=== PATIENT | female | born 1970 | race Caucasian/White ===

== ENCOUNTER 2019-05-15 08:15 | Day surgery (SDC) | payer OTHER ==
[~2019-05-15 08:15] MED LIST: FENTANYL CITR 100 MCG/2 ML ONE; LIDOCAINE 2% MPF 5 ML VIAL ONE; MIDAZOLAM HCL 2 MG/2 ML INJ ONE; MORPHINE 10 MG/ML VIAL ONE; NS 0.9% VIAL 30 ML ONE; Phenylephrine HCl 10 MG/ML 1 ML VIAL ONE; ROCURONIUM 50 MG/5 ML VIAL IV ONE; propofoL 200 MG/20 ML VIAL IV ONE
[2019-05-15 08:31] LABS: Basophils % 0.9 % (0-1.3); Hematocrit 43.3 % (36.0-45.0); Lymphocytes % 13.2 % (15.3-44.8); MPV 8.5 fL (7.6-11.3); RBC Red Blood Cell Count 4.25 M/uL (3.86-4.86)
[2019-05-15] MEDS ORDERED: SCOPOLAMINE HYDROBROMIDE PATCH TD ONE (08:38)
[2019-05-15] MEDS ORDERED: Ringers Lactate 1,000 ML IV ONE ×4 (08:39→14:00)
[2019-05-15] MEDS ORDERED: CEFAZOLIN/SWI 1gm 1 GM/10 ML SYR ONE (08:39)
[2019-05-15] MEDS ORDERED: NS 0.9% VIAL 40 ML ONE (08:42)
--- NOTE | 2019-05-15 08:42 | RAD REPORT ---
EXAM DESCRIPTION: RAD - Chest Pa And Lat (2 Views) - 05/15/2019 8:14 am CLINICAL HISTORY: preop, patient pending breast surgery COMPARISON: No comparisons TECHNIQUE: Frontal and lateral views of the chest were obtained. FINDINGS: The lungs are clear. Heart size is normal and central vasculature is within normal limit s. No pleural effusion or pneumothorax seen. No acute bony finding noted. No aortic abnormality. IMPRESSION: No acute cardiopulmonary process.
[2019-05-15] MEDS ORDERED: CEFAZOLIN SODIUM 1 GM/VIAL ONE ×2 (08:43→10:37)
[2019-05-15] MEDS ORDERED: LIDOCAINE 1% 20 ML MDV ONE (08:43)
[2019-05-15] MEDS ORDERED: Mastisol Adhesive Liq ONE (08:43)
[2019-05-15] MEDS ORDERED: BACITRACIN 50000 UNIT VIAL ONE (08:43)
[2019-05-15] MEDS ORDERED: GENTAMICIN SULF 80 MG/2ML INJ ONE (08:43)
[2019-05-15 09:25] LABS: Specific Gravity 1.025 (1.005-1.030); Urine Appearance CLOUDY; Urine Blood NEGATIVE (NEG); Urine Color YELLOW; Urine Glucose NEGATIVE (NEG); Urine Protein NEGATIVE (NEG); Urine Specific Gravity 1.025 (1.005-1.030); Urine Urobilinogen 0.2 mg/dL (0.2-1.0); Urine pH 5.5 (5.0-7.0)
[2019-05-15 09:26] LABS: Urine Bilirubin 1+ (NEG); Urine Microscopic Reflex ORDER UMIC
[2019-05-15 09:44] LABS: Urine Bacteria >50 /HPF (<20); Urine Culture Reflex Order REFLEXED; Urine RBC <5 /HPF (NONE SEEN)
[2019-05-15] MEDS ORDERED: dexAMETHasone 10 MG/ML VIAL ONE (10:19)
[2019-05-15] MEDS ORDERED: ONDANSETRON 4 MG/2 ML VIAL ONE ×2 (10:37→14:18)
[2019-05-15] MEDS ORDERED: NS 0.9% VIAL 20 ML ONE (10:50)
[2019-05-15] MEDS ORDERED: EPHEDRINE SULF 50 MG/ML VIAL ONE (11:14)
[2019-05-15] MEDS ORDERED: ALBUMIN HUM 5% 250 ML IV ONE ×2 (11:16→11:18)
[2019-05-15] MEDS ORDERED: NS 0.9% VIAL 10 ML ONE (11:26)
[2019-05-15] MEDS ORDERED: VECURONIUM 10 MG/VIAL IV ONE (12:05)
[2019-05-15] MEDS ORDERED: KETOROLAC 30 MG/ML INJ ONE (13:21)
--- NOTE | 2019-05-15 13:34 | EKG ---
Test Date: 2019-05-15 Test Time: 08:01:12 System Engineer: DENTON MEASUREMENT RESULTS: Intervals: Rate: 89 [place]: 170 QRSD: 94 QT: 384 QTc: 467 [place]: P: 62 [place]: 170 QRS: 77 T: 65 INTERPRETIVE STATEMENTS: Normal sinus rhythm Normal ECG No previous ECG available for comparison Electronically Signed On 05-15-19 13:32:51 COMMODITY SPECIALIST by Roland Greer
[2019-05-15] MEDS: HYDROMORPHONE HCL 1 MG/ML INJ ONE ×2 (14:18→14:26)
[2019-05-15] MEDS ORDERED: CODEINE 30MG/APAP 300MG TAB ONE (15:13)
[2019-05-15] MEDS ORDERED: CODEINE 30MG/APAP 300MG TAB PO ONE (15:15)
[2019-05-15 15:43] VITALS: TEMP 97.8; O2SAT 97
[2019-05-15 15:44] VITALS: BP 140/89
--- NOTE | 2019-05-15 23:44 | OP ---
Surgeon: Jaime Dumont MD Straddle Truck Operator: Yonatan. Preoperative Diagnosis: Breast descent. Postoperative Diagnoses: Breast descent. Procedure Performed: Breast lift. Anesthesia: General. Procedure In Detail: After satisfactory induction of general anesthesia, the chest was prepped with DuraPrep, dry sterile drapes applied in the usual manner. A 45 template was used to outline the righ t and left areolas. Transverse curvilinear incisions were made. Intervening skin was de-epitheliali zed with dermabrader and EpiCut and the transverse and lateral incision was made with electrocautery. The flap was thinned to 1.2 cm elevated toward the sternum, clavicle, and anterior axillary line. Both sides were done simultaneously. Then, the inferior incision was made and then de-epithelialized tissue was rotated into a cone with 2-0 PDS sutures. The straps were elevated of the right breast a t 12 o'clock, 1:30, and 3 o'clock position. Then the straps were woven in and out of the pectoralis major muscle, back to the base of the cone, pectoralis muscle back to the base of cone, tied themselv es with 2-0 PDS suture. This was done from the 12 o'clock and 1:30 strap. The 3 o'clock strap was s ewn over the sternum at 3 o'clock position with 2-0 Ethibond sutures. Left side was done in a mirror -image manner. The wound was then stapled shut. Asymmetry was checked. The patient was turned supi ne, wound was irrigated with antibiotic solution. A 10 OMI was brought out the axilla and sewn in gilma ce with 2-0 silk. Excess dog-ears laterally were cut out and the wound closed in layers with 3-0 Prem ryl subcu, 3-0 PDS running subcuticular tied in the vertical meridian of the breast. After this was done, the patient was sat up. Site for new nipple-areolar complex was marked out. A 45 mm template was used, tissue excised, nipple delivered, sewn with interrupted 4-0 PDS followed by 4-0 PDS running subcuticular. Dressings consisted of tincture of benzoin, Steri-Strips, 5 x 5s, fluffs, and Trevor wra p. The patient tolerated the procedure well. The amount removed was 20 g from the left and 40 g fro m the right. JULIA/BRARYL Voice ID: [id number] Report ID: [id number]
[2019-05-19 19:29] LABS: HBsAG Nonreactive (Nonreactive)
== END 2019-05-15 15:38 | disposition home or self-care (01) ==
LOC: OR 08:15
PROVIDERS: ATTEND Specialist
PROC: 0H0V0ZZ Alteration of Bilateral Breast, Open Approach (ICD-10-PCS; principal; 2019-05-15 09:00)
DX: N64.81 Ptosis of breast (principal)
CPT/HCPCS: 93005; 87088; 85025; 87086; 36415; 81025; 88305; 87077 ×2; 87186 ×2; 86705; 87340; 86803; 80074; 71046; 19316; G0433; J2704; J2370; J1580; J2250; J3010; J1100; P9045 ×2; J1170; J0690 ×3; J7120 ×4; J2405 ×2; 81003; 81015